=== PATIENT | male | born 1965 | race Caucasian/White ===

== ENCOUNTER 2019-10-21 11:37 | Observation (INO) | payer SELFPAY ==
[2019-10-21] VITALS (7 sets, daily range): BP systolic 166–193; BP diastolic 87–105
[~2019-10-21] VITALS: Ht 172.7 cm; Wt 86.0 kg
[2019-10-21 12:00] LABS: BASO % 0.3 % (0.0-1.0); EOS # 0.1 10*3/uL (0.0-0.4); EOS % 1.9 % (1.0-4.0); HEMATOCRIT 38.3 % (42.0-52.0); LYMPH # 2.2 10*3/uL (1.3-4.4); LYMPH % 34.2 % (27.0-41.0); MEAN CELL VOLUME 86.5 fl (80.0-94.0); MEAN CORPUSCULAR HGB 29.8 pg (27.0-31.0); MEAN CORPUSCULAR HGB CONC 34.5 g/dl (33.0-37.0); MEAN PLATELET VOLUME 10.3 fl (9.6-12.3); MONO # 0.4 10*3/uL (0.1-1.0); MONO % 6.5 % (3.0-9.0); NEUT # 3.6 10*3/uL (2.3-7.9); NEUT % 56.9 % (47.0-73.0); PLATELET COUNT AUTOMATED 264 10*3/uL (130-400); RED BLOOD COUNT 4.43 10*6/uL (4.50-5.90); WHITE BLOOD COUNT 6.3 10*3/uL (4.8-10.8)
[2019-10-21 12:11] LABS: ACT PARTIAL THROMBO TIME 25.5 SECONDS (20.0-32.1); INTERNATIONAL NORM RATIO 0.9 (2.0-3.5)
[2019-10-21 12:17] LABS: ALBUMIN 3.7 gm/dl (3.1-4.5); ALKALINE PHOSPHATASE 90 U/L (45-117); BUN 13 mg/dl (7-24); CHLORIDE 101 mmol/L (98-107); CREATININE 1.33 mg/dL (0.70-1.30); POTASSIUM 3.7 mmol/L (3.5-5.1); SGOT/AST 23 IU/L (3-35); SGPT/ALT 51 U/L (12-78); SODIUM 136 mmol/L (136-145); TOTAL PROTEIN 7.9 gm/dL (6.4-8.2)
[2019-10-21 12:23] LABS: TROPONIN I < 0.015 ng/ml (<0.045)
[2019-10-21] MEDS ORDERED: ALLOPURINOL300 MG PO (14:38)
[2019-10-21] MEDS ORDERED: CARDURA4 MG PO (14:38)
[2019-10-21] MEDS ORDERED: METFORMIN HYD1000 MG PO (14:38)
[2019-10-21] MEDS ORDERED: COZAAR50 M1 PO (14:38)
[2019-10-21 18:04] LABS: BILIRUBIN NEGATIVE; BLOOD NEGATIVE (NEGATIVE); CLARITY CLEAR (CLEAR); COLOR YELLOW (YELLOW); GLUCOSE NEGATIVE; KETONE NEGATIVE; LEUKO ESTERASE NEGATIVE (NEGATIVE); NITRITE NEGATIVE (NEGATIVE); PH 6.5 (4.5-8.0); UROBILINOGEN 0.2 E.U./dl (0.0-1.0)
[2019-10-21 18:11] LABS: EPITHELIAL CELLS 0-2
[2019-10-22] VITALS: BP 146/87
[2019-10-22 05:44] VITALS: BP 162/90
[2019-10-22 06:04] LABS: BASO % 0.3 % (0.0-1.0); EOS # 0.1 10*3/uL (0.0-0.4); EOS % 1.8 % (1.0-4.0); HEMATOCRIT 36.4 % (42.0-52.0); LYMPH # 2.6 10*3/uL (1.3-4.4); LYMPH % 35.9 % (27.0-41.0); MEAN CELL VOLUME 87.5 fl (80.0-94.0); MEAN CORPUSCULAR HGB 30.3 pg (27.0-31.0); MEAN CORPUSCULAR HGB CONC 34.6 g/dl (33.0-37.0); MEAN PLATELET VOLUME 10.4 fl (9.6-12.3); MONO # 0.4 10*3/uL (0.1-1.0); MONO % 6.1 % (3.0-9.0); NEUT % 55.8 % (47.0-73.0); PLATELET COUNT AUTOMATED 243 10*3/uL (130-400); RED BLOOD COUNT 4.16 10*6/uL (4.50-5.90); RED CELL DISTRI WIDTH 12.4 % (0-14.5); WHITE BLOOD COUNT 7.2 10*3/uL (4.8-10.8)
[2019-10-22 06:33] LABS: ALBUMIN 3.3 gm/dl (3.1-4.5); ALKALINE PHOSPHATASE 64 U/L (45-117); BUN 12 mg/dl (7-24); CHLORIDE 105 mmol/L (98-107); CHOLESTEROL 147 mg/dL (<200); CREATININE 1.05 mg/dL (0.70-1.30); HDL CHOLESTEROL 27 mg/dl (40-60); LDL CHOLESTEROL 70 mg/dL (9-159); POTASSIUM 3.3 mmol/L (3.5-5.1); SGOT/AST 23 IU/L (3-35); SGPT/ALT 50 U/L (12-78); SODIUM 139 mmol/L (136-145); TOTAL PROTEIN 6.9 gm/dL (6.4-8.2); TRIGLYCERIDES 250 mg/dl (<150); VLDL CHOLESTEROL 50 mg/dL (6-40)
[2019-10-22 06:38] LABS: THYROID STIM HORMONE (HS) 0.985 uIU/ml (0.358-4.75)
[2019-10-22 07:36] LABS: ACT PARTIAL THROMBO TIME 26.3 SECONDS (20.0-32.1)
[2019-10-22 08:01] LABS: VITAMIN D, 25-HYDROXY 37.1 ng/mL (30-100)
[2019-10-22 12:50] VITALS: BP 180/94
[2019-10-22] MEDS ORDERED: ATORVASTATIN CA20 M1 PO (13:28)
[2019-10-22] MEDS ORDERED: AMLODIPINE BESYL5 MG PO (13:28)
[2019-10-22 16:00] VITALS: BP 149/76
[2019-10-22 20:00] VITALS: BP 177/92
[2019-10-23] VITALS: BP 179/91
[2019-10-23 05:44] VITALS: BP 178/110
[2019-10-23 08:00] VITALS: BP 164/92
[2019-10-23 12:00] VITALS: BP 146/92
[2019-10-23] MEDS ORDERED: COREG12.5 M1 PO (12:53)
[2019-10-23] MEDS ORDERED: JARDIANCE10 MG PO (12:54)
== END 2019-10-23 15:13 | disposition home or self-care (01) ==
LOC: ED 11:37 → 4E 13:18 → EDHOLD 13:18 → 4E 13:51
PROVIDERS: Emergency Medicine; Internal Medicine; ADMIT Internal Medicine; ATTEND Internal Medicine
DX: R07.89 Other chest pain (principal); R10.9 Unspecified abdominal pain; E11.65 Type 2 diabetes mellitus with hyperglycemia; I10 Essential (primary) hypertension; N40.0 Benign prostatic hyperplasia without lower urinary tract symptoms; D64.9 Anemia, unspecified; E44.0 Moderate protein-calorie malnutrition; M10.9 Gout, unspecified; K59.00 Constipation, unspecified; E66.3 Overweight

== ENCOUNTER 2019-11-06 18:34 | Emergency (ER) | payer SELFPAY ==
[~2019-11-06] VITALS: Ht 172.7 cm; Wt 83.5 kg
[~2019-11-06 18:34] MED LIST: ALLOPURINOL300 MG PO; AMLODIPINE BESYL5 MG PO; ATORVASTATIN CA20 M1 PO; CARDURA4 MG PO; COREG12.5 M1 PO; COZAAR50 M1 PO; JARDIANCE10 MG PO; METFORMIN HYD1000 MG PO
[2019-11-06 19:13] LABS: BASO % 0.3 % (0.0-1.0); EOS # 0.2 10*3/uL (0.0-0.4); EOS % 2.3 % (1.0-4.0); HEMATOCRIT 38.2 % (42.0-52.0); LYMPH # 2.5 10*3/uL (1.3-4.4); LYMPH % 31.5 % (27.0-41.0); MEAN CELL VOLUME 86.6 fl (80.0-94.0); MEAN CORPUSCULAR HGB 29.7 pg (27.0-31.0); MEAN CORPUSCULAR HGB CONC 34.3 g/dl (33.0-37.0); MEAN PLATELET VOLUME 10.1 fl (9.6-12.3); MONO # 0.7 10*3/uL (0.1-1.0); MONO % 8.8 % (3.0-9.0); NEUT # 4.6 10*3/uL (2.3-7.9); NEUT % 56.8 % (47.0-73.0); PLATELET COUNT AUTOMATED 322 10*3/uL (130-400); RED BLOOD COUNT 4.41 10*6/uL (4.50-5.90); RED CELL DISTRI WIDTH 11.8 % (0-14.5)
[2019-11-06 19:26] LABS: ACT PARTIAL THROMBO TIME 25.7 SECONDS (20.0-32.1)
[2019-11-06 19:30] LABS: ALBUMIN 3.7 gm/dl (3.1-4.5); ALKALINE PHOSPHATASE 109 U/L (45-117); BUN 17 mg/dl (7-24); CHLORIDE 100 mmol/L (98-107); CREATININE 1.16 mg/dL (0.70-1.30); POTASSIUM 3.6 mmol/L (3.5-5.1); SGOT/AST 12 IU/L (3-35); SGPT/ALT 34 U/L (12-78); SODIUM 137 mmol/L (136-145); TOTAL PROTEIN 8.1 gm/dL (6.4-8.2)
[2019-11-06 19:35] LABS: ETHYL ALCOHOL < 3.0 mg/dl (<3); TROPONIN I < 0.015 ng/ml (<0.045)
[2019-11-06 20:53] LABS: BILIRUBIN NEGATIVE; CLARITY CLEAR (CLEAR); COLOR YELLOW (YELLOW); GLUCOSE 2+; KETONE NEGATIVE
[2019-11-06 20:54] LABS: BLOOD NEGATIVE (NEGATIVE); HYALINE CAST 16-20; LEUKO ESTERASE NEGATIVE (NEGATIVE); MUCOUS TRACE; NITRITE NEGATIVE (NEGATIVE); RBC 0-2 rbc/hpf (0-2)
== END 2019-11-06 22:03 | disposition short-term general hospital (02) ==
LOC: ED 18:34
PROVIDERS: Emergency Medicine
DX: I63.9 Cerebral infarction, unspecified (principal); R47.01 Aphasia; I10 Essential (primary) hypertension; E11.9 Type 2 diabetes mellitus without complications; M10.9 Gout, unspecified; Z79.899 Other long term (current) drug therapy; Z79.84 Long term (current) use of oral hypoglycemic drugs